=== PATIENT | male | born 1985 | race Caucasian/White ===

== ENCOUNTER 2021-02-06 11:52 | Emergency (ER) | payer OTHER, SELFPAY ==
[2021-02-06 11:53] VITALS: BP 140/97; PULSE 78; RESP 16; TEMP 36.1; O2SAT 100; BMI 40.7
--- NOTE | 2021-02-06 12:11 | EX.ED.UPPERE ---
HPI History of Present Illness Chief Complaint: Upper Extremity Injury Narrative Narrative: 35-year-old male presenting with left hand pain. He states he was working on a car that was on a metal lift. He states that the left came down on the top of his hand. He states that he lifted a car in total probably a couple of 1000 pounds but he does not believe that he caught the full weight of it. His brother was there and was able to lift it just enough to get him out from under this. Patient states he does have a little bit of paresthesia in this area but is able to move his fingers and can feel it when he touches with his other hand. Patient's got a small wound on the volar surface over the thenar eminence which is not actively bleeding. Last tetanus is less than 5 years ago. PFSH PFSH Medical History no medical history Home Medications hydroxyzine pamoate 25 mg PO DAILY 02/06/21 [History Last Taken Unknown] ibuprofen 600 mg PO Q8H PRN PRN #30 tablet 02/06/21 [Rx Last Taken Unknown] Allergy/AdvReac Type Severity Reaction Status Date / Time No Known Allergies Allergy Verified 02/06/21 11:54 Social History Smoking Status: Former smoker ROS ROS ED Constitutional Constitutional ED: Denies chills, fever(s) or sweats Eyes Eyes: Denies blurry vision or change in vision ENT ENT ED: Denies ear pain or sore throat Cardiovascular Cardiovascular: Denies chest pain, palpitations or racing heartbeat Respiratory/Chest Respiratory/Chest: Denies cough, dyspnea or sputum Gastrointestinal Gastrointestinal: Denies abdominal pain, constipation, diarrhea, nausea or vomiting Genitourinary Genitourinary ED: Denies dysuria, hematuria or urinary frequency Musculoskeletal Musculoskeletal: Reports other Details: Left hand pain ; Denies arthralgias, myalgias or neck pain Integumentary Reports Abrasions; Denies abscess or rash Neurologic Neurologic: Denies headache(s), paresthesias or weakness Psychiatric Psychiatric: Denies anxiety, depression, suicidal ideation or suicidal thoughts Endocrine Endocrinology: Denies polydipsia or polyuria EXAM Physical Exam Const Vital Signs: 02/06/21 11:53 Temperature 96.9 F L Temperature Source Temporal Pulse Rate 78 Respiratory Rate 16 Blood Pressure 140/97 H Blood Pressure Mean 111 Pulse Ox 100 Oxygen Delivery Method Room Air Positive well nourished General Appearance ED: NAD HEENT normocephalic and atraumatic Eyes PERRL and EOMs intact bilaterally Resp normal respiratory effort Effort and Inspection: able to speak in complete sentences Extremity Extremity Narrative: Tenderness to palpation over the lateral aspect of the left hand proximal to the second and third digits medial to the first. There is some swelling. There is an indentation made over this area in a linear fashion from the dorsal mid hand to just adjacent to the base of the thumb. There is a small superficial abrasion over the thenar eminence. No obvious bony deformity but there is some swelling in the left hand. Left hand neurovascularly intact with brisk cap refill to all 5 fingers. Skin Skin Narrative: As described above MDM MDM MDM Narrative Medical decision making narrative: Patient presenting with left hand pain. He estimates that the weight of the vehicle and amount that it was on was about 2000 pounds although it did not catch his entire hand. He is neurovascularly intact. There is a small superficial abrasion over the thenar eminence. There is no active bleeding. I obtained an x-ray of the left hand which on my interpretation shows no acute fracture or subluxation. The radiologist does agree. Patient was given oxycodone in the ED however he does not believe narcotic pain medication works on him he rather have ibuprofen. He was given this as well. Patient was provided prescription for ibuprofen at home. He is counseled to ice this as well. Patient stable for discharge. Impression: 1. Left hand contusion 2. Superficial left hand abrasion Discharge Plan Triage Chief Complaint: Upper Extremity Injury ED Provider: Wily Mishra Dx/Rx/DC Orders Instructions: ED Abrasion, ED Hand Contusion Prescriptions: New ibuprofen 600 mg tablet 600 mg PO Q8H PRN PRN (Reason: pain) Qty: 30 RF: 0 No Action hydroxyzine pamoate 25 mg capsule 25 mg PO DAILY RF: 0 Primary Care Provider: Luis Miguel Baird Referrals: Luis Miguel Baird DO [Primary Care Provider] - Disposition Disposition: Home, Self Care Discharge Date/Time: 02/06/21 14:17
[2021-02-06] MEDS: oxyCODONE 5 MG Tablet PO (12:15)
--- NOTE | 2021-02-06 12:15 | RAD_ITS ---
EXAM: XR LEFT HAND COMPLETE, 3 OR MORE VIEWS : 1987 CLINICAL INDICATION: hand pain TECHNIQUE: Frontal, lateral and oblique views of the left hand. This report was created using [employer] report generation technology. COMPARISON: None. FINDINGS: BONES/JOINTS: Unremarkable. No acute fracture. No subluxation. Normal alignment. Preservation of the joint space. No sclerotic or destructive changes observed. SOFT TISSUES: Unremarkable. No soft tissue swelling or gas. No radiopaque foreign body. RAD/Hand Min 3 Views IMPRESSION: Negative left hand x-rays. at 1303 Reported and signed by: Yassine Sanches MD Electronically Signed: Yassine Sanches MD at 13:02 EDT Tel , Service support ,
[2021-02-06] MEDS: Ibuprofen 600 MG Tablet PO (14:11)
[2021-02-06 14:15] VITALS: BP 127/88; PULSE 79; RESP 14; O2SAT 99
== END 2021-02-06 14:17 | disposition home or self-care (01) ==
PROVIDERS: Emergency Provider Student in an Organized Health Care Education/Training Program; PCP Student in an Organized Health Care Education/Training Program
DX: S60.222A Contusion of left hand, initial encounter (principal); S60.512A Abrasion of left hand, initial encounter; Z87.891 Personal history of nicotine dependence; X58.XXXA Exposure to other specified factors, initial encounter; Z79.899 Other long term (current) drug therapy
CPT/HCPCS: 73130; 99283

== ENCOUNTER 2025-01-23 11:34 | Emergency (ER) | payer BC, SELFPAY ==
[2025-01-23 11:35] VITALS: BP 164/101; PULSE 101; RESP 18; TEMP 36.9; O2SAT 100; BMI 38.0
--- NOTE | 2025-01-23 12:10 | EX.ED.DYSGE1 ---
HPI History of Present Illness Chief Complaint: Shortness of Breath Informant: patient Narrative Narrative: 39-year-old male presenting to the emergency room out of concern for aspiration. Patient states that around midnight he believes he had a nosebleed and he woke up coughing and was producing some bloody phlegm. Last months he was having some nosebleed that was difficult to control. He has not had any further bleeding yet today. States when he got to work his chest felt tight he continued to feel like perhaps he aspirated some of the blood. He went to urgent care and was referred to emergency. He denies any DVT PE risk factors. No reported fevers. No pain in the chest. PFSH PFSH Medical History no medical history Home Medications ?Medication ?Instructions ?Recorded ?Last Taken ?Type hydroxyzine pamoate 25 mg capsule 25 mg PO DAILY 02/06/21 Unknown History ibuprofen 600 mg tablet 600 mg PO Q8H PRN PRN pain #30 02/06/21 Unknown Rx TABLETS Allergy/AdvReac Type Severity Reaction Status Date / Time No Known Allergies Allergy Verified 01/23/25 11:35 Social History Smoking Status: Former smoker ROS ROS ED Constitutional Constitutional ED: Denies chills or weight loss Eyes Eyes: Denies change in vision or diplopia ENT ENT ED: Reports other Details: Epistaxis ; Denies ear pain, rhinorrhea or sore throat Cardiovascular Cardiovascular: Denies chest pain, orthopnea, palpitations or racing heartbeat Respiratory/Chest Respiratory/Chest: Reports cough and dyspnea; Denies orthopnea Gastrointestinal Gastrointestinal: Denies abdominal pain, diarrhea, nausea or vomiting Genitourinary Genitourinary ED: Denies dysuria, hematuria or urinary frequency Musculoskeletal Musculoskeletal: Denies arthralgias or myalgias Integumentary Denies abscess or rash Neurologic Neurologic: Denies headache(s) or weakness Psychiatric Psychiatric: Denies anxiety, depression, suicidal ideation or suicidal thoughts Endocrine Endocrinology: Denies polydipsia, polyphagia or polyuria Allergic/Immunologic Allergic/Immunologic ED: Denies mouth swelling, tongue swelling or urticaria EXAM Physical Exam Const Vital Signs: 01/23/25 11:35 01/23/25 12:22 01/23/25 12:23 Temperature 98.5 F Temperature Source Oral Pulse Rate 101 H 97 Respiratory Rate 18 18 Respiratory Effort Normal Non-Labored Respiratory Depth Normal Respiratory Pattern Normal Blood Pressure 164/101 H Blood Pressure Mean 122 Pulse Ox 100 96 Oxygen Delivery Method Room Air Room Air Room Air 01/23/25 12:59 Temperature 98.2 F Temperature Source Pulse Rate 89 Respiratory Rate 18 Respiratory Effort Respiratory Depth Respiratory Pattern Blood Pressure 135/95 H Blood Pressure Mean 108 Pulse Ox 99 Oxygen Delivery Method Positive well nourished and well developed General Appearance ED: well developed HEENT Reports normocephalic, head/scalp atraumatic and moist mucous membranes HEENT Narrative: There is an area in the left anterior naris consistent with possible cautery. There is a fresh clot in the right anterior plexus. There is no active bleeding. There is no blood in the posterior pharynx. Eyes PERRL and EOMs intact bilaterally Neck no lymphadenopathy, supple and no JVD Resp normal respiratory effort and clear to auscultation bilaterally Resp Narrative: Respirations are easy nonlabored Cardio regular rate, regular rhythm and no murmurs GI normal to inspection, nondistended, normoactive bowel sounds and non-tender Palpation: soft Back/Spine no CVA tenderness and normal ROM Extremity normal to inspection General Extremety ED: Negative for edema General Extremity: Negative for edema Neuro oriented x3 and CN's II-XII intact bilaterally Sensorium / Orientation: alert Motor Exam: strength 5/5 throughout Psych mental status grossly normal Mood & Affect: Negative for depressed or tearful Skin no rashes or lesions noted and no wounds MDM MDM MDM Narrative Medical decision making narrative: Differential diagnosis includes posterior and anterior epistaxis aspiration pneumonia acute coronary syndrome pulmonary embolism congestive heart failure pleural effusion Two-view chest x-ray is obtained. This is negative for infiltrate. I do suspect the patient may have aspirated some I do not believe he necessarily needs antibiotics at this time. Would encourage him to continue to cough and to clear the airways. Moisturize the anterior plexus to avoid further bleeding. Patient is advised to return instructions notes understanding. History & Record Review Discussion w/independent historian: Patient Radiography Diagnostic Testing: Clinical Impression(s) from Imaging Studies Chest X-Ray 01/23/25 12:15 IMPRESSION: NO ACUTE FINDINGS. Reading Location: [facility] Discharge Plan Triage Chief Complaint: Shortness of Breath ED Provider: Castro Saez Dx/Rx/DC Orders Clinical Impression: Acute anterior epistaxis, Aspiration into airway Instructions: ED Epistaxis (Adult) Prescriptions: No Action hydroxyzine pamoate 25 mg capsule 25 mg PO DAILY ibuprofen 600 mg tablet 600 mg PO Q8H PRN PRN (Reason: pain) Qty: 30 0RF Primary Care Provider: Luis Miguel Baird Referrals: Luis Miguel Baird, [Primary Care Provider, Medical] - As Needed Print Language: Uzbek Disposition Disposition: Home, Self Care Discharge Date/Time: 01/23/25 13:00
--- NOTE | 2025-01-23 12:15 | RAD_ITS ---
PROCEDURE: CHEST PA AND LATERAL 01/23/2025 REASON FOR EXAM: COUGH TECHNIQUE: Procedure Code: RADCXR Modality: DX Procedure: CHEST PA AND LATERAL COMPARISON: None. FINDINGS: LUNGS AND PLEURA: The lungs are clear. No pleural effusion or pneumothorax. HEART AND MEDIASTINUM: The heart size and mediastinal contours are normal. BONES: No acute osseous abnormality. RAD/Chest PA and Lateral IMPRESSION: NO ACUTE FINDINGS. Reading Location: [id number]
[2025-01-23 12:22] VITALS: O2SAT 100
[2025-01-23 12:23] VITALS: PULSE 97; RESP 18; O2SAT 96
[2025-01-23 12:59] VITALS: BP 135/95; PULSE 89; RESP 18; TEMP 36.8; O2SAT 99
== END 2025-01-23 13:00 | disposition home or self-care (01) ==
PROVIDERS: Emergency Provider Emergency Medicine; PCP Student in an Organized Health Care Education/Training Program; Visit Provider Emergency Medicine
DX: T17.298A Other foreign object in pharynx causing other injury, initial encounter (principal); R04.0 Epistaxis; Z87.891 Personal history of nicotine dependence
CPT/HCPCS: 71046; 99282